=== PATIENT | female | born 1980 | race American Indian/Alaskan Native ===

== ENCOUNTER 2018-07-29 21:56 | Emergency (ER) | payer MEDICAID ==
[2018-07-29 22:29] VITALS: BP 116/68
[2018-07-30 00:48] LABS: HCG Qualitative,Urine Negative (Negative)
--- NOTE | 2018-07-30 01:47 | XRay Report ---
PROCEDURE: XR ANKLE 2V RT TECHNIQUE: AP and lateral views of the right ankle were submitted. HISTORY: fall right ankle pain COMPARISONS: None FINDINGS: There is no evidence of fracture or soft tissue injury. The ankle mortise appears normal. IMPRESSION: Within normal limits.. This document is electronically signed by Brien Victor MD., July 30 2018 01:45:28 AM ET
--- NOTE | 2018-07-30 01:48 | XRay Report ---
PROCEDURE: XR FOOT 2V RT TECHNIQUE: AP and lateral views of the right foot were obtained. HISTORY: fall, right foot pain COMPARISONS: None FINDINGS: There is no evidence of acute fracture or dislocation. The soft tissues are well-maintained. IMPRESSION: Within normal limits.. This document is electronically signed by Brien Victor MD., July 30 2018 01:46:24 AM ET
--- NOTE | 2018-07-30 01:49 | XRay Report ---
PROCEDURE: XR SPINE THORACIC 2V TECHNIQUE: AP and lateral views of the thoracic spine were submitted. HISTORY: fall, upper back pain COMPARISONS: None FINDINGS: There is a mild levoscoliosis. The disc heights and alignment appear normal. There is no evidence of fracture. The soft tissues are well-maintained. IMPRESSION: Mild levoscoliosis. No evidence of fracture.. This document is electronically signed by Brien Victor MD., July 30 2018 01:47:18 AM ET
--- NOTE | 2018-07-30 03:44 | Emergency Department Report ---
ED Fall HPI - General Chief Complaint: Fall Stated Complaint: FALL/ANKLE/ARM PAIN Time Seen by Provider: 07/30/18 03:27 Source: patient Mode of arrival: Ambulatory - History of Present Illness Initial Comments: Pt is a 38 yo female who presents to the ED s/p a fall that occurred two days ago. The patient states she missed the last step and fell onto her right ankle and middle back. She has associated right ankle pain and middle back pain. She has been ambulatory without difficulty. She denies any numbness, weakness, tingling, buckling, LOC, or hitting her head. - Related Data Previous Rx's Medication Instructions Recorded Last Taken Type Docusate Sodium [Colace CAP] 100 mg PO BID PRN #60 capsule 11/09/15 Unknown Rx Cyclobenzaprine [Flexeril] 10 mg PO QHS PRN #7 tablet 07/30/18 Unknown Rx Ibuprofen 600 mg PO Q6HR PRN #20 tablet 07/30/18 Unknown Rx Allergies Allergy/AdvReac Type Severity Reaction Status Date / Time No Known Allergies Allergy Verified 03/08/15 13:03 ED Review of Systems ROS: Stated complaint: FALL/ANKLE/ARM PAIN Other details as noted in HPI Comment: All other systems reviewed and negative ED Past Medical Hx - Past Medical History Previous Medical History?: Yes Hx Hypertension: No Hx Congestive Heart Failure: No Hx Diabetes: No Hx Deep Vein Thrombosis: No Hx Renal Disease: No Hx Sickle Cell Disease: Yes (sickle trait) Hx Seizures: No Hx Kidney Stones: Yes Hx Asthma: No Hx COPD: No Hx HIV: No Additional medical history: Miscarriage x 1 - Surgical History Past Surgical History?: Yes Additional Surgical History: Kidney stones removed, x 1 - Social History Smoking Status: Current Every Day Smoker Substance Use Type: None - Medications Home Medications: Home Medications Medication Instructions Recorded Confirmed Last Taken Type Docusate Sodium [Colace CAP] 100 mg PO BID PRN #60 capsule 11/09/15 Unknown Rx Cyclobenzaprine [Flexeril] 10 mg PO QHS PRN #7 tablet 07/30/18 Unknown Rx Ibuprofen 600 mg PO Q6HR PRN #20 tablet 07/30/18 Unknown Rx ED Physical Exam - General Limitations: No Limitations General appearance: alert, in no apparent distress - Head Head exam: Present: atraumatic, normocephalic - Eye Eye exam: Present: normal appearance - Neck Neck exam: Present: normal inspection, full ROM. Absent: tenderness - Respiratory Respiratory exam: Present: normal lung sounds bilaterally. Absent: respiratory distress, wheezes, rales, rhonchi, stridor, chest wall tenderness, accessory muscle use, decreased breath sounds, prolonged expiratory - Cardiovascular Cardiovascular Exam: Present: regular rate, normal rhythm, normal heart sounds. Absent: systolic murmur, rubs, gallop - Extremities Exam Extremities exam: Present: normal inspection, full ROM, normal capillary refill, other (no tenderness of the right ankle/foot/or digits, FROM of the right ankle, foot, and digits, neurovascularly intact, no edema, no ecchymosis, completely benign exam). Absent: tenderness, pedal edema, joint swelling - Back Exam Back exam: Present: normal inspection, full ROM, paraspinal tenderness. Absent: vertebral tenderness (very mild T-spine paraspinal muscular TTP, no C-spine, T- spine or L-spine midline tenderness, no step offs, no deformities) - Neurological Exam Neurological exam: Present: alert, oriented X3, CN II-XII intact, normal gait. Absent: motor sensory deficit - Psychiatric Psychiatric exam: Present: normal affect, normal mood - Skin Skin exam: Present: warm, dry, intact ED Course Vital Signs 07/29/18 22:26 Temperature 98.5 F Pulse Rate 87 Respiratory 14 Rate Blood Pressure 116/68 O2 Sat by Pulse 100 Oximetry ED Medical Decision Making - Radiology Data Radiology results: report reviewed HISTORY: fall, upper back pain COMPARISONS: None FINDINGS: There is a mild levoscoliosis. The disc heights and alignment appear normal. There is no evidence of fracture. The soft tissues are well-maintained. IMPRESSION: Mild levoscoliosis. No evidence of fracture.. This document is electronically signed by Brien Victor MD., July 30 2018 01:47:18 AM ET PROCEDURE: XR FOOT 2V RT TECHNIQUE: AP and lateral views of the right foot were obtained. HISTORY: fall, right foot pain COMPARISONS: None FINDINGS: There is no evidence of acute fracture or dislocation. The soft tissues are well-maintained. IMPRESSION: Within normal limits.. This document is electronically signed by Brien Victor MD., July 30 2018 01:46:24 AM ET PROCEDURE: XR ANKLE 2V RT TECHNIQUE: AP and lateral views of the right ankle were submitted. HISTORY: fall right ankle pain COMPARISONS: None FINDINGS: There is no evidence of fracture or soft tissue injury. The ankle mortise appears normal. IMPRESSION: Within normal limits.. This document is electronically signed by Brien Victor MD., July 30 2018 01:45:28 AM ET - Medical Decision Making Pt is a 38 yo female who presents to the ED s/p a fall that occurred two days ago. The patient states she missed the last step and fell onto her right ankle and middle back. She has associated right ankle pain and middle back pain. She has been ambulatory without difficulty. She denies any numbness, weakness, tingling, buckling, LOC, or hitting her head. Radiology ordered and performed prior to my evaluation. Pt is ambulatory without difficulty. The right ankle, right foot, and right digits have no tenderness, no edema, no ecchymosis, FROM, no joint laxity. very mild TTP of the t-spine paraspinal muscular tenderness to palpation, no midline tenderness, no step offs, no deformities. XR of the right ankle, right foot, and T-spine all with no acute process. Will give pt anti- inflammatory and short course of muscle relaxer. Advised to only use muscle relaxer as needed at night and do not drive or operate heavy machinery. May use heat, ice, elevation, epsom salt bath. Return to the ED for any new or worsening symptoms. - Differential Diagnosis fracture, dislocation, muscle strain Critical care attestation.: If time is entered above; I have spent that time in minutes in the direct care of this critically ill patient, excluding procedure time. ED Disposition Clinical Impression: Muscle strain Right ankle pain Qualifiers: Chronicity: acute Qualified Code(s): M25.571 - Pain in right ankle and joints of right foot Fall Qualifiers: Encounter type: initial encounter Qualified Code(s): W19.XXXA - Unspecified fall, initial encounter Disposition: TO HOME OR SELFCARE Is pt being admited?: No Does the pt Need Aspirin: No Condition: Stable Instructions: Muscle Strain (ED), Arthralgia (ED) Additional Instructions: Follow up with your primary care doctor in the next 2-3 days. Take medication as prescribed. Only use muscle relaxer as needed and do not drive or operate heavy machinery. Return to the emergency room for any new or worsening symptoms. Use heat, ice, elevation. Prescriptions: Cyclobenzaprine [Flexeril] 10 mg PO QHS PRN #7 tablet PRN Reason: Muscle Spasm Ibuprofen 600 mg PO Q6HR PRN #20 tablet PRN Reason: Pain, Mild (1-3) Referrals: MICHAEL GLEZ MD [Primary Care Provider] - 2-3 Days Time of Disposition: 03:44 Print Language: DUTCH
== END 2018-07-30 04:00 | disposition home or self-care (01) ==
LOC: ED 21:56
DX: M25.571 Pain in right ankle and joints of right foot (principal); M54.6 Pain in thoracic spine; F17.200 Nicotine dependence, unspecified, uncomplicated; W10.9XXA Fall (on) (from) unspecified stairs and steps, initial encounter; Y93.89 Activity, other specified; Y92.89 Other specified places as the place of occurrence of the external cause; Y99.8 Other external cause status
CPT/HCPCS: 72070; 81025

== ENCOUNTER 2020-05-23 06:10 | Day surgery (SDC) | payer MEDICAID ==
[~2020-05-23 06:10] MED LIST: ACETAMINOPHEN 500 MG TAB PO SCH; CELECOXIB 200 MG CAP PO NR; GABAPENTIN 300 MG CAP PO NR; LACTATED RINGERS 1,000 ML IV SCH; MIDAZOLAM 2 MG/2 ML INJ IV NR; SCOPOLAMINE TRANSDERMAL PATCH 72 HR TD NR; fentaNYL 100 MCG/2 ML INJ IV PRN
[2020-05-23] MEDS ORDERED: ceFAZolin/STERILE WATER 2 GM/20 ML SYRINGE IV NR (07:00)
--- NOTE | 2020-05-23 07:01 | Anesthesia Consultation ---
Anesthesia Consult and Med Hx Date of service: 05/23/20 - Airway Anesthetic Teeth Evaluation: Good ROM Head & Neck: Adequate Mental/Hyoid Distance: Adequate Mallampati Class: Class II Intubation Access Assessment: Good - Pulmonary Exam CTA: Yes - Cardiac Exam Cardiac Exam: RRR - Pre-Operative Health Status ASA Pre-Surgery Classification: ASA3 Proposed Anesthetic Plan: General - Pulmonary Hx Smoking: Yes (1/2 PPD) SOB: Yes (SOB) Hx Sleep Apnea: No (BRYANT PRE SCREEN LOW RISK) - Cardiovascular System Hx Hypertension: Yes - Central Nervous System Hx Seizures: Yes (3 YRS AGO- NO MEDS) Hx Back Pain: Yes Hx Psychiatric Problems: Yes (PTSD) - Endocrine Hx Hypothyroidism: No Hx Hyperthyroidism: No - Hematic Hx Anemia: No Hx Sickle Cell Disease: Yes (Trait only) - Other Systems Hx Alcohol Use: Yes (Occas) Hx Cancer: No
--- NOTE | 2020-05-23 07:02 | Anesthesia Day of Surgery ---
<MARCELL HORTA - Last Filed: 05/23/20 07:01> Anesthesia Day of Surgery - Day of Surgery Patient Examined: Yes Patient H&P Reviewed: Yes Patient is NPO: Yes <AURELIO MORROW - Last Filed: 05/23/20 07:50> Anesthesia Day of Surgery - Day of Surgery Cardiac Clearance: Yes
[2020-05-23] MEDS ORDERED: propofoL 200 MG/20 ML VIAL IV ONE (07:05)
[2020-05-23] MEDS ORDERED: fentaNYL 100 MCG/2 ML INJ ONE (07:06)
[2020-05-23] MEDS ORDERED: LIDOCAINE (1%) 10 MG/1 ML VIAL 20 ML MDV ONE (07:45)
[2020-05-23] MEDS ORDERED: BUPIVACAINE/PF (0.25%) 2.5 MG/ML 30 ML VIAL INFILTRATI ONE (07:46)
[2020-05-23] MEDS ORDERED: KETOROLAC 30 MG/1 ML INJ ONE (08:03)
[2020-05-23] MEDS ORDERED: dexAMETHasone 20 MG/5 ML VIAL ONE (08:03)
[2020-05-23] MEDS ORDERED: ONDANSETRON 4 MG/2 ML INJ ONE (08:03)
[2020-05-23] MEDS ORDERED: BUPIVACAINE/PF (0.5%) 5 MG/1 ML 30 ML VIAL INFILTRATI ONE (08:13)
[2020-05-23] MEDS ORDERED: LIDOCAINE (1%) 10 MG/1 ML VIAL 20 ML MDV INFILTRATI ONE (08:13)
[2020-05-23] MEDS ORDERED: SODIUM CHLORIDE 0.9% IRR 1,500 ML BOTTLE IR ONE (08:17)
[2020-05-23] MEDS ORDERED: NEOSTIGMINE 10MG/10 ML INJ MDV ONE (08:51)
[2020-05-23] MEDS ORDERED: GLYCOPYRROLATE 0.4 MG/2 ML INJ ONE (08:51)
[2020-05-23] MEDS ORDERED: ROCURONIUM 50 MG/5 ML INJ IV ONE (09:00)
--- NOTE | 2020-05-23 09:23 | Short Stay Summary ---
"Short Stay Documentation Date of service: 05/23/20 - History Principal diagnosis: umbilical hernia incarcerated H&P: obtained from office - Allergies and Medications Current Medications: Allergies Iodinated Contrast Media Adverse Reaction (Verified 05/23/20 06:27) Swelling Home Medications Medication Instructions Recorded Confirmed Last Taken Type Mirtazapine [Remeron] 15 mg PO QHS 05/16/20 05/23/20 05/23/20 01:00 History OXcarbazepine [Trileptal] 300 mg PO QHS 05/16/20 05/23/20 05/23/20 01:00 History Prazosin [Minipress] 2 mg PO QHS 05/16/20 05/23/20 05/23/20 01:00 History Sertraline [Zoloft] 50 mg PO QDAY 05/16/20 05/23/20 05/23/20 01:00 History Active Medications Acetaminophen (Acetaminophen 500 Mg Tab) 1,000 mg PO PREOP CAIN Last Admin: 05/23/20 06:20 Dose: 1,000 mg Documented by: Cefazolin Sodium (Cefazolin/Sterile Water 2 Gm/20 Ml Syringe) 2 gm IV PREOP NR Stop: 05/23/20 23:59 Celecoxib (Celecoxib 200 Mg Cap) 200 mg PO PREOP NR Stop: 05/23/20 17:00 Last Admin: 05/23/20 06:20 Dose: 200 mg Documented by: Fentanyl (Fentanyl 100 Mcg/2 Ml Inj) 100 mcg IV ONCE PRN PRN Reason: sedation for nerve block Gabapentin (Gabapentin 300 Mg Cap) 300 mg PO PREOP NR Stop: 05/23/20 17:00 Last Admin: 05/23/20 06:20 Dose: 300 mg Documented by: Lactated Ringer's (Lactated Ringers) 1,000 mls @ 100 mls/hr IV DIRECT CAIN Stop: 05/23/20 23:59 Last Admin: 05/23/20 06:55 Dose: 100 mls/hr Documented by: Midazolam HCl (Midazolam 2 Mg/2 Ml Inj) 2 mg IV PREOP NR Stop: 05/23/20 17:00 Last Admin: 05/23/20 07:11 Dose: 2 mg Documented by: Scopolamine (Scopolamine Transdermal Patch 72 Hr) 1 each TD PREOP NR Stop: 05/23/20 17:00 Last Admin: 05/23/20 06:20 Dose: 1 each Documented by: - Brief post op/procedure progress note Date of procedure: 05/23/20 Pre-op diagnosis: incarcerated umbilical hernia Post-op diagnosis: same Procedure: open repair of incarcerated umbilical hernia with mesh Anesthesia: GETA, local Findings: 2 x2.5cm hernia defect with large amount of incarcerated omentum Repaired with [address] mesh Surgeon: MEL OROURKE Estimated blood loss: minimal Pathology: list (hernia sac) Specimen disposition: to lab Condition: stable - Hospital course Hospital course: Pt observed in PACU and discharged to home in stable condition when criteria met - Disposition Condition at discharge: Good Disposition: DC-01 TO HOME OR SELFCARE Short Stay Discharge Plan Activity: other (No heavy lifting of greater than 15 lbs for 6 weeks) Diet: regular Wound: open to air, other (remove outer dressing in 7 days) Additional Instructions: General Surgery Mel Orourke DO [address] [facility], [facility] | [place] [address] | F ([phone]) [email or web address] Patient discharge instructions You have undergone surgery to repair an umbilical hernia with mesh Diet: Regular diet Make sure to drink plenty of water and stay hydrated Activity: You are encouraged to walk and may go up and down the steps. 1. [address] if you are taking prescription, narcotic pain medications. 2. Do not do any heavy lifting greater than 15 lbs for next 6 weeks 3. Wear abdominal binder during daytime, may remove during shower and sleep. Showering: You may shower tomorrow. Leave outer dressing on for 7 days. Pat incision dry, do not scrub. Do not submerge incision in bathtub, pool, hottub for 2 weeks. Wound care instructions: There is glue on your incisions which will fall off on its own. Pain medications: You have been given a prescription for ibuprofen, gabapentin, and Percocet. Take exactly as prescribed. If you have any unused prescription pain medication, please return to your pharmacy to have is discarded. You may use ice pack to incisions to help with pain and bruising. Reasons to call Surgeons office: If you have fevers >100.4 If you are having increasing abdominal pain or vomiting If you have pain that is not controlled with prescription pain medications If you have drainage if pus or redness around the incisions. When to come back to see your Surgeon: Please call the office ([phone]) to make an appointment to see the surgeon in 2 week. Call if you have any questions. 11 [facility] Ground floor Follow up with: PRIMARY CARE, [Primary Care Provider] - 7 Days MEL OROURKE DO [Staff Physician] - 14 Days Prescriptions: Gabapentin 300 mg PO BID #6 capsule Ibuprofen [Motrin 800 MG tab] 800 mg PO Q8HR 3 Days #30 tablet oxyCODONE /ACETAMINOPHEN [Percocet 5/325] 1 tab PO Q6HR PRN #20 tablet PRN Reason: Pain , Severe (7-10)"
[2020-05-23] MEDS: HYDROmorphone 1 MG/1 ML INJ IV PRN ×3 (09:37→09:57)
[2020-05-23] MEDS ORDERED: ONDANSETRON 4 MG/2 ML INJ IV PRN (10:00)
[2020-05-23] MEDS ORDERED: oxyCODONE /ACETAMINOPHEN 5-325MG TAB PO PRN ×2 (10:00)
--- NOTE | 2020-05-23 10:03 | Operative Report ---
Operative Report Operative Report: Date of procedure: 05/23/20 Pre-op diagnosis: incarcerated umbilical hernia Post-op diagnosis: same Procedure: Open repair of incarcerated umbilical hernia with mesh Anesthesia: SANDHYA local Findings: 2 x2.5cm hernia defect with large amount of incarcerated omentum Repaired with [address] mesh Surgeon: GUMARO OROURKE Estimated blood loss: minimal Pathology: list (hernia sac) Specimen disposition: to lab Condition: stable Hospital course: Pt observed in PACU and discharged to home in stable condition when criteria met HPI indication: Patient is a 39-year-old female who presented to the surgery clinic with an incarcerated umbilical hernia for many years. The hernia had gotten larger over the last several years especially during her last . The patient was having more discomfort in the area and it was recommended that the hernia be repaired. The hernia was only partially reducible in the office. There were no skin changes. The patient was considering having more children in the future and therefore it was discussed repairing the hernia without mesh if the defect was small enough. The possibility of mesh was also discussed. All risk, benefits, alternatives to surgery discussed with patient and questions answered. Consent was obtained. Procedure in detail: Patient was identified in the preoperative area, taken back to the operating room and placed on the operating room table in supine position. After anesthesia was induced the abdomen was prepped and draped in usual sterile fashion timeout performed. Local anesthetic was infiltrated to skin at the intended incision site. The umbilicus was protuberant and the skin stretched out due to the chronically incarcerated hernia. A semilunar incision was made at the inferior aspect of the umbilicus using a 15 blade. Dissection was carried down through skin and subcutaneous tissue using Bovie electrocautery until the hernia was encountered. The hernia sac and its contents were circumferentially dissected free from the surrounding tissue using a hemostat and electrocautery. The fascia was identified and freed of overlying tissue circumferentially. There was a large amount of omentum incarcerated in the hernia and it could not be reduced through the existing hernia defect. The hernia defect was slightly enlarged in order to facilitate reduction of the hernia contents. The omentum was reduced. Any further adhesions to the anterior abdominal wall were taken down very carefully using blunt dissection. The fascial defect was measured at 2.5 x 2 cm. Approximately 1 cm superior to this defect was another tiny defect with incarcerated preperitoneal fat. The fat was freed circumferentially and able to be reduced into the preperitoneal space. An [address] mesh was chosen to repair this defect. The mesh was inserted into the abdomen and was ensured to be expanded completely and laying flat against the peritoneum. This was sutured in place using 2-0 PDS suture circumfrentially. The tabs were incorporated in the repair and cut flush with the fascia. The subcutaneous tissue was irrigated and hemostasis was carefully ensured. The tiny fascial defect was closed with interrupted 0 PDS stitch. The larger fascial defect was closed with a running 0 PDS suture. The umbilicus was tacked down to the fascia using a 3-0 Vicryl U stitch. The incision was then closed in layered fashion. The deep dermal layer was closed with interrupted 3-0 Vicryl stitches. Local anesthetic was once again infiltrated to the skin and subcutaneous tissue. The skin was approximated with 4-0 Monocryl subcuticular running stitch and skin glue. Once the glue was dry a balled up fluffed gauze was placed in the umbilicus and secured with a Tegaderm. At the end of the case, all sponge, instrument, sharp counts were correct x2. The patient was awoken from anesthesia extubated and taken to PACU in stable condition. An abdominal binder was applied.
--- NOTE | 2020-05-23 10:29 | Post Anesthesia Evaluation ---
- Post Anesthesia Evaluation Patient Participated: Yes Airway Patent: Yes Stable Respiratory Function: Yes Nausea/Vomiting: No Temp > 96.8F: Yes Pain Manageable: Yes Adequeate Hydration: Yes Anesthesia Complications: No
[2020-05-23 11:19] VITALS: BP 114/68
== END 2020-05-23 11:30 | disposition home or self-care (01) ==
LOC: OR 06:10
PROVIDERS: ATTEND Surgery
DX: K42.0 Umbilical hernia with obstruction, without gangrene (principal); I10 Essential (primary) hypertension; K21.9 Gastro-esophageal reflux disease without esophagitis; F31.9 Bipolar disorder, unspecified; F17.210 Nicotine dependence, cigarettes, uncomplicated; F41.9 Anxiety disorder, unspecified; Z86.19 Personal history of other infectious and parasitic diseases; Z91.041 Radiographic dye allergy status; Z79.899 Other long term (current) drug therapy; Z98.891 History of uterine scar from previous surgery; Z72.89 Other problems related to lifestyle; Z98.890 Other specified postprocedural states; Z87.440 Personal history of urinary (tract) infections; Z87.442 Personal history of urinary calculi; Z83.3 Family history of diabetes mellitus
CPT/HCPCS: 49587; 81025; 88302; C1781; J0690; J1100; J1170; J1885; J2250; J2405; J2704; J2710; J3010; J7120; U0003

== ENCOUNTER 2020-08-10 12:27 | Emergency (ER) | payer MEDICAID ==
[2020-08-10] MEDS ORDERED: LORazepam 2 MG/ML VIAL IM ONE (12:53)
[2020-08-10] MEDS ORDERED: ZIPRASIDONE MESYLATE 20 MG VIAL IM ONE (12:53)
[2020-08-10] MEDS ORDERED: SODIUM CHLORIDE 0.9% 1000 ML 1,000 ML IV ONE ×3 (12:56→16:29)
[2020-08-10] MEDS ORDERED: ONDANSETRON 4 MG/2 ML INJ IV ONE ×2 (12:56→15:39)
[2020-08-10 14:08] LABS: Basophils # (Auto) 0.1 K/mm3 (0.0-0.1); Basophils % (Auto) 0.9 % (0.0-1.8); Eosinophils # (Auto) 0.1 K/mm3 (0.0-0.4); Eosinophils % (Auto) 0.5 % (0.0-4.3); Hematocrit 38.6 % (30.3-42.9); Hemoglobin 12.9 gm/dl (10.1-14.3); Lymphocytes # (Auto) 2.2 K/mm3 (1.2-5.4); Lymphocytes % (Auto) 16.8 % (13.4-35.0); Mean Corpuscular HGB Conc 33 % (30-34); Mean Corpuscular Volume 93 fl (79-97); Monocytes # (Auto) 0.6 K/mm3 (0.0-0.8); Monocytes % (Auto) 4.7 % (0.0-7.3); Platelet Count 206 K/mm3 (140-440); Red Blood Count 4.15 M/mm3 (3.65-5.03); Red Cell Distribution Width 12.4 % (13.2-15.2)
[2020-08-10] MEDS ORDERED: PIPERACIL/TAZOBACTA 4.5/NS 100 4.5 GM/100 ML VIAL IV ONE (14:21)
[2020-08-10 14:41] LABS: Creatine Kinase MB 2.3 ng/mL (0.0-4.0)
[2020-08-10 14:43] LABS: Alanine Aminotransferase 7 units/L (7-56); Albumin 3.4 g/dL (3.9-5); BUN/Creatinine Ratio 9; Blood Urea Nitrogen 8 mg/dL (7-17); Calcium 8.9 mg/dL (8.4-10.2)
[2020-08-10 14:45] LABS: Bilirubin,Direct < 0.2 mg/dL (0-0.2)
--- NOTE | 2020-08-10 15:49 | Cat Scan Report ---
CT abdomen pelvis wo con INDICATION: lower abd pain. TECHNIQUE: All CT scans at this location are performed using CT dose reduction for ALARA by means of automated e xposure control. COMPARISON: 04/19/2018 FINDINGS: Lung bases are clear of acute disease. Liver, gallbladder, spleen and pancreas are negative on this n oncontrast exam. Multiple nonobstructing calculi in the lower pole collecting system of each kidney. Right kidney is very mildly hydronephrotic, with slight dilatation of the right ureter. Benign-appear ing 4 cm cyst in the upper pole of the left kidney. Adrenals are normal. Abdominal aorta is normal in size. No adenopathy. Pelvis Broad-based umbilical hernia, without complication. There again appears to be a tiny calculus in the very distal right ureter, without evidence of significant obstruction. Uterus and ovaries are negativ e. Normal appendix. No significant bowel abnormalities. IMPRESSION: 1. Nonobstructing renal calculi bilaterally, with a tiny (2 mm) calculus in the distal right ureter , apparently causing low-grade obstruction.. Signer Name: Rob Franco MD Signed: 08/10/2020 3:44 PM Workstation Name: [id number]
--- NOTE | 2020-08-10 16:28 | Emergency Department Report ---
ED General Adult HPI - General Chief complaint: Nausea/Vomiting/Diarrhea Stated complaint: NAUSEA/FEVER Time Seen by Provider: 08/10/20 12:53 Source: patient, EMS Mode of arrival: Stretcher Limitations: No Limitations - History of Present Illness Initial comments: This is a 40-year-old female that nursing brought to my attention when she was very agitated and difficult to obtain a history from at triage. She currently has a history of psychiatric illness. She was given a milligram of Ativan. She did seem to improve. When she was placed in the treatment area I was able to obtain a history although she was a persistently poor historian. She complained of lower abdominal pain below the site of her umbilical herniorrhaphy which was performed in May 2000. She thinks she might of had a fever. She had been vomiting. Detailed information was really not forthcoming. -: unknown Location: abdomen Radiation: non-radiation Quality: other (Did not describe) Consistency: intermittent Improves with: none Worsens with: none Associated Symptoms: denies other symptoms, nausea/vomiting - Related Data Home Medications Medication Instructions Recorded Confirmed Last Taken Mirtazapine [Remeron] 15 mg PO QHS 05/16/20 05/23/20 05/23/20 01:00 OXcarbazepine [Trileptal] 300 mg PO QHS 05/16/20 05/23/20 05/23/20 01:00 Prazosin [Minipress] 2 mg PO QHS 05/16/20 05/23/20 05/23/20 01:00 Sertraline [Zoloft] 50 mg PO QDAY 05/16/20 05/23/20 05/23/20 01:00 Previous Rx's Medication Instructions Recorded Last Taken Type Gabapentin 300 mg PO BID #6 capsule 05/23/20 Unknown Rx Ibuprofen [Motrin 800 MG tab] 800 mg PO Q8HR 3 Days #30 tablet 05/23/20 Unknown Rx oxyCODONE /ACETAMINOPHEN [Percocet 1 tab PO Q6HR PRN #20 tablet 05/23/20 Unknown Rx 5/325] Allergies Allergy/AdvReac Type Severity Reaction Status Date / Time Iodinated Contrast Media AdvReac Swelling Verified 05/23/20 06:27 ED Review of Systems ROS: Stated complaint: NAUSEA/FEVER Other details as noted in HPI Constitutional: denies: chills, fever Eyes: denies: eye pain, eye discharge, vision change ENT: denies: ear pain, throat pain Respiratory: denies: cough, shortness of breath Cardiovascular: denies: chest pain, palpitations Endocrine: no symptoms reported Gastrointestinal: abdominal pain, nausea, vomiting. denies: diarrhea Genitourinary: denies: urgency, dysuria Musculoskeletal: denies: back pain, arthralgia Skin: denies: rash, lesions Neurological: denies: headache, weakness, paresthesias Psychiatric: as per HPI, anxiety Hematological/Lymphatic: denies: easy bleeding, easy bruising ED Past Medical Hx - Past Medical History Hx Hypertension: Yes Hx Congestive Heart Failure: No Hx Diabetes: No Hx Deep Vein Thrombosis: No Hx GERD: Yes Hx Sickle Cell Disease: Yes (Trait only) Hx Seizures: Yes (3 YRS AGO- NO MEDS) Hx Kidney Stones: Yes Hx HIV: No Additional medical history: Miscarriage x 1 - Surgical History Additional Surgical History: Kidney stones removed, x 1 - Social History Smoking Status: Current Every Day Smoker - Medications Home Medications: Home Medications Medication Instructions Recorded Confirmed Last Taken Type Mirtazapine [Remeron] 15 mg PO QHS 05/16/20 05/23/20 05/23/20 01:00 History OXcarbazepine [Trileptal] 300 mg PO QHS 05/16/20 05/23/20 05/23/20 01:00 History Prazosin [Minipress] 2 mg PO QHS 05/16/20 05/23/20 05/23/20 01:00 History Sertraline [Zoloft] 50 mg PO QDAY 05/16/20 05/23/20 05/23/20 01:00 History Gabapentin 300 mg PO BID #6 capsule 05/23/20 Unknown Rx Ibuprofen [Motrin 800 MG tab] 800 mg PO Q8HR 3 Days #30 tablet 05/23/20 Unknown Rx oxyCODONE /ACETAMINOPHEN [Percocet 1 tab PO Q6HR PRN #20 tablet 05/23/20 Unknown Rx 5/325] ED Physical Exam - General Limitations: No Limitations General appearance: alert, in no apparent distress - Head Head exam: Present: atraumatic, normocephalic - Eye Eye exam: Present: normal appearance. Absent: scleral icterus - ENT ENT exam: Present: mucous membranes moist - Neck Neck exam: Present: normal inspection - Respiratory Respiratory exam: Present: normal lung sounds bilaterally. Absent: respiratory distress - Cardiovascular Cardiovascular Exam: Present: regular rate, normal rhythm. Absent: systolic murmur, diastolic murmur, rubs, gallop - GI/Abdominal GI/Abdominal exam: Present: soft, normal bowel sounds, other (Healed herniorrhaphy site without apparent recurrence/defect). Absent: distended, tenderness, guarding, rebound, rigid - Extremities Exam Extremities exam: Present: normal inspection - Back Exam Back exam: Present: normal inspection - Neurological Exam Neurological exam: Present: alert, oriented X3, CN II-XII intact. Absent: motor sensory deficit - Psychiatric Psychiatric exam: Present: anxious, flat affect - Skin Skin exam: Present: warm, dry, intact, normal color. Absent: rash ED Course Vital Signs 08/10/20 08/10/20 08/10/20 12:30 12:48 13:00 Temperature 94.8 F L Pulse Rate 100 H 74 Respiratory 24 22 24 Rate Blood Pressure 125/76 Blood Pressure 124/68 [Left] O2 Sat by Pulse 98 100 98 Oximetry 08/10/20 08/10/20 08/10/20 13:46 14:00 17:00 Temperature 97.8 F Pulse Rate 70 39 L 74 Respiratory 16 13 16 Rate Blood Pressure 119/69 119/69 Blood Pressure [Left] O2 Sat by Pulse 95 99 100 Oximetry 08/10/20 08/10/20 08/10/20 17:46 18:46 19:00 Temperature Pulse Rate 75 67 69 Respiratory 25 H 16 21 Rate Blood Pressure 108/57 108/57 108/57 Blood Pressure [Left] O2 Sat by Pulse 98 98 100 Oximetry - Reevaluation(s) Reevaluation #1: A rectal temperature was obtained. It was found to be less than 95 degrees. Patient was given IV fluid. A CT of her abdomen and pelvis demonstrated bilateral nephrolithiasis with a tiny stone in the right distal ureter with mild hydronephrosis. The patient was given Zosyn when she was initially found to have a low temperature. I am still waiting for urinalysis. I did obtain a lactic acid level which was 3.9. Patient was given fluid bolus. Lactic acid level will be repeated. Patient states he is doing much better. Reevaluation #2: Patient appears clinically improved. She is hemodynamically stable. I was concerned about her presentation with hypothermia and lactic acidosis. She was empirically given antibiotics. Repeat lactic acid level was still elevated at 2.9. Therefore, the hospitalist was consulted regarding her continued care and disposition. The CT exam showed: FINDINGS: Lung bases are clear of acute disease. Liver, gallbladder, spleen and pancreas are negative on this noncontrast exam. Multiple nonobstructing calculi in the lower pole collecting system of each kidney. Right kidney is very mildly hydronephrotic, with slight dilatation of the right ureter. Benign-appearing 4 cm cyst in the upper pole of the left kidney. Adrenals are normal. Abdominal aorta is normal in size. No adenopathy. Pelvis Broad-based umbilical hernia, without complication. There again appears to be a tiny calculus in the very distal right ureter, without evidence of significant obstruction. Uterus and ovaries are negative. Normal appendix. No significant bowel abnormalities. IMPRESSION: 1. Nonobstructing renal calculi bilaterally, with a tiny (2 mm) calculus in the distal right ureter, apparently causing low-grade obstruction.. 08/10/20 19:30 As such, I do not think the patient has an acute urological emergency. Dr. Almodovar has requested that the patient stay in the emergency department for consultation and his medical decision making regarding further care and disposition. Reevaluation #3: Dr. Almodovar has seen the patient. He states he plans to discharge the patient and place her on Levaquin. Cultures are pending. 08/10/20 19:39 ED Medical Decision Making - Lab Data Result diagrams: 08/10/20 13:05 08/10/20 17:03 Laboratory Results - last 24 hr 08/10/20 08/10/20 08/10/20 13:05 13:05 13:05 WBC 12.9 H RBC 4.15 Hgb 12.9 Hct 38.6 MCV 93 MCH 31 MCHC 33 RDW 12.4 L Plt Count 206 Lymph % (Auto) 16.8 [place] % (Auto) 4.7 Eos % (Auto) 0.5 Baso % (Auto) 0.9 Lymph # (Auto) 2.2 [place] # (Auto) 0.6 Eos # (Auto) 0.1 Baso # (Auto) 0.1 Seg Neutrophils % 77.1 H Seg Neutrophils # 10.0 H Sodium 132 L Potassium 3.9 Chloride 101.9 Carbon Dioxide 12 L Anion Gap 22 BUN 8 Creatinine 0.9 Estimated GFR > 60 BUN/Creatinine Ratio 9 Glucose 130 H Lactic Acid Calcium 8.9 Magnesium 1.90 Total Bilirubin 0.40 Direct Bilirubin < 0.2 Indirect Bilirubin 0.2 AST 21 ALT 7 Alkaline Phosphatase 55 Total Creatine Kinase 230 H CK-MB (CK-2) 2.3 CK-MB (CK-2) Rel Index 1.0 Troponin T < 0.010 Total Protein 6.9 Albumin 3.4 L Albumin/Globulin Ratio 1.0 Lipase HCG, Qual Salicylates < 0.3 L 08/10/20 08/10/20 08/10/20 13:05 14:15 14:15 WBC RBC Hgb Hct MCV MCH MCHC RDW Plt Count Lymph % (Auto) [place] % (Auto) Eos % (Auto) Baso % (Auto) Lymph # (Auto) [place] # (Auto) Eos # (Auto) Baso # (Auto) Seg Neutrophils % Seg Neutrophils # Sodium Potassium Chloride Carbon Dioxide Anion Gap BUN Creatinine Estimated GFR BUN/Creatinine Ratio Glucose Lactic Acid 3.90 H* Calcium Magnesium Total Bilirubin Direct Bilirubin Indirect Bilirubin AST ALT Alkaline Phosphatase Total Creatine Kinase CK-MB (CK-2) CK-MB (CK-2) Rel Index Troponin T Total Protein Albumin Albumin/Globulin Ratio Lipase 14 HCG, Qual Negative Salicylates Critical care attestation.: If time is entered above; I have spent that time in minutes in the direct care of this critically ill patient, excluding procedure time. ED Disposition Clinical Impression: Lactic acidosis, Renal colic on right side, Nephrolithiasis Hypothermia Qualifiers: Encounter type: initial encounter Qualified Code(s): T68.XXXA - Hypothermia, initial encounter Disposition: - TO HOME OR SELFCARE Is pt being admited?: No Does the pt Need Aspirin: No Condition: Stable Referrals: PRIMARY CARE, [Primary Care Provider] - 3-5 Days Time of Disposition: 19:39
[2020-08-10 17:44] LABS: HCG Qualitative,Urine Negative (Negative)
[2020-08-10 17:46] LABS: BUN/Creatinine Ratio 10; Blood Urea Nitrogen 8 mg/dL (7-17); Calcium 8.6 mg/dL (8.4-10.2); Hemolysis Index 10
[2020-08-10 17:46] LABS: Bilirubin,Urine NEG (Negative); Blood,Urine LG (Negative); Color,Urine Yellow (Yellow); Mucus,Urine 3+ /HPF; Urobilinogen,Urine < 2.0 mg/dL (<2.0)
[2020-08-10 17:47] LABS: RBC,Urine > 182.0 /HPF (0.0-6.0)
[2020-08-10] MEDS ORDERED: cefTRIAXone/NS 2 GM/100 ML 2 GM/100 ML BAG IV SCH (19:00)
[2020-08-10] MEDS ORDERED: D5W/0.9% NACL 1,000 ML IV SCH (19:00)
[2020-08-10 19:28] VITALS: BP 108/57
--- NOTE | 2020-08-10 19:59 | Event Note ---
Date: 08/10/20 Patient reevaluated Temperature is 97 Heart rate is 69 respiratory rate is 21 O2 sats 100% blood pressure is 108/57. Patient looks normal and feels a lot better since the time of admission. Patient had 4 episodes of vomiting few hours ago which she attributes to food poisoning. Now symptomatically better and no nausea or vomiting for the last c ouple of hours. Patient was given IV fluids. No source of infection identified. Discharge diagnosis Acute gastritis Elevated lactic acid secondary to vomiting Metabolic acidosis which is resolved Abdominal CAT scan is normal Patient to be discharged on Zofran ODT. No need for antibiotics
--- NOTE | 2020-08-11 11:31 | Electrocardiograph Report ---
[facility] Test Date: 2020-08-10 Test Time: 20:11:58 Pat Name: IAN MCNAMARA Department: Room: Gender: F Proposal Writer: : 1980 Requested By: CHAPARRO MAKI Order Number: [id number] Reading MD: George Bravo Measurements Intervals Cabins Rate: 67 P: 81 IN: 160 QRS: 97 QRSD: 79 T: 76 QT: 426 QTc: 449 Interpretive Statements Sinus rhythm No previous ECG available for comparison Electronically Signed On 08-11-2020 11:31:11 EDT by George Bravo
== END 2020-08-10 21:07 | disposition home or self-care (01) ==
LOC: ED 12:27
DX: T68.XXXA Hypothermia, initial encounter (principal); N20.0 Calculus of kidney; E87.2 Acidosis; N23 Unspecified renal colic; I10 Essential (primary) hypertension; K21.9 Gastro-esophageal reflux disease without esophagitis; F17.200 Nicotine dependence, unspecified, uncomplicated; Z98.890 Other specified postprocedural states; Z79.1 Long term (current) use of non-steroidal anti-inflammatories (NSAID); Z79.899 Other long term (current) drug therapy; Z88.8 Allergy status to other drugs, medicaments and biological substances; X58.XXXA Exposure to other specified factors, initial encounter
CPT/HCPCS: 36415; 74176; 80048; 80076; 81001; 81025; 82140; 82550; 82553; 83690; 83735; 84484; 84703; 85025; 87040; 87086; 93005; 96361; 96365; 96372; 96375; 96376; 99285; J2060; J2405; J2543; J3486; J7030; 80320; G0480